=== PATIENT | female | born 1980 | race Caucasian/White ===

== ENCOUNTER 2020-03-11 13:45 | Emergency (ER) | payer OTHER, SELFPAY ==
--- NOTE | 2020-03-11 13:58 | PC.NURSE ---
Patient decided she did not want to be seen here and walked out
== END 2020-03-11 13:58 | disposition left against medical advice (07) ==
PROVIDERS: Emergency Provider Nurse Practitioner; PCP Family Medicine
DX: Z53.21 Procedure and treatment not carried out due to patient leaving prior to being seen by health care provider (principal)
CPT/HCPCS: 99199